=== PATIENT | male | born 1960 | race Hispanic/Latino ===

== ENCOUNTER 2023-09-25 12:08 | Inpatient (IN) | payer OTHER ==
[2023-09-25] MEDS ORDERED: ONDANSETRON 4 MG/2 ML VIAL ONE (12:39)
[2023-09-25] MEDS ORDERED: NA CHLORIDE 0.9% 1,000 ML ONE (12:39)
[2023-09-25] MEDS ORDERED: MORPHINE 4 MG/ML SYR ONE (12:39)
[2023-09-25 12:43] LABS: Absolute Eosinophils 0.1 K/uL (0-0.5); Absolute Lymphocytes (CBC) 1.6 K/uL (0.7-4.9); Absolute Monocytes 0.6 K/uL (0.1-1.3); Absolute Neutrophil 7.9 K/uL (1.8-8.0); Basophils % 0.3 % (0-1.3); Eosinophils % 0.9 % (0-4.4); Hematocrit 50.6 % (39.6-49.0); Hemoglobin 17.4 g/dL (13.6-17.9); Lymphocytes % 15.6 % (15.3-44.8); MCH 30.3 pg (27.0-35.0); MCHC 34.4 g/dL (32.0-36.0); MCV 88.2 fL (80-100); MPV 9.7 fL (7.6-11.3); Monocytes % 5.8 % (3.3-12.3); Neutrophils % 77.4 % (41.7-73.7); Platelets 184 thou/uL (152-406); RBC Red Blood Cell Count 5.74 M/uL (4.33-5.43); Red Cell Distribution Width 13.3 % (12.1-15.2)
[2023-09-25 13:09] LABS: Albumin 3.9 g/dL (3.4-5.0); Albumin/Globulin Ratio 1.1 (1.1-1.8); Anion Gap 7.2 mEq/L (5.0-15.0); Bilirubin Total 0.6 mg/dL (0.2-1.0); Globulin 3.7 g/dL (2.3-3.5); Protein, Total 7.6 g/dL (6.4-8.2); Troponin High Sensitivity 3.3 pg/mL (<58.9)
[2023-09-25 13:11] LABS: Potassium 4.2 mEq/L (3.5-5.1)
--- NOTE | 2023-09-25 14:05 | RAD REPORT ---
EXAM DESCRIPTION: CTAbdomen Pelvis W Contrast - 09/25/2023 1:42 pm CLINICAL HISTORY: ABD PAIN COMPARISON: No comparisons TECHNIQUE: CT of the abdomen and pelvis was performed. All CT scans are performed using dose optimization technique as appropriate and may include automated exposure control or mA/KV adjustment according to patient size. FINDINGS: Lower chest: No acute abnormality. Liver: Hepatic steatosis. No focal masses. Biliary: No biliary ductal dilatation. Stomach: No significant focal abnormality. Duodenum: No significant focal abnormality. Pancreas: No significant abnormality. Spleen: No significant abnormality. Adrenal: No suspicious lesions. Kidney/ureter: No hydronephrosis. No renal calculi. Retroperitoneum: No retroperitoneal adenopathy. Vascular: No aneurysm. Mild atherosclerosis. Bowel: Normal appendix.. The proximal small bowel is mildly dilated measuring up to 3.1 cm. The trans ition to nondilated small bowel is long and smooth. Peritoneum: No ascites or free air. Bladder: Grossly unremarkable. Reproductive: No adnexal masses. Bones: No acute fracture. Other: n/a IMPRESSION: Mildly dilated proximal small bowel centrally could reflect an ileus. The transition to nondilated distal small bowel is long and smooth without convincing evidence of a mechanical small romy wel obstruction at this time. No other acute findings identified. Specifically, no CT evidence of acu te pancreatitis. The appendix is normal.
--- NOTE | 2023-09-25 15:37 | ER ---
Nurse's Notes [facility] Name: Jean Carlos Vences Age: 63 yrs Sex: Male : 1960 Arrival Date: 09/25/2023 Time: 12:08 Bed 20 Private MD: Diagnosis: Ileus, unspecified Presentation: 09/24 12:19 Chief complaint: Patient states: Lower CP that radiates into back started this AM. ll1 Coronavirus screen: Client denies travel out of the [place] in the last 14 days. At this time, the client does not indicate any symptoms associated with coronavirus-19. Ebola Screen: Patient denies travel to an Ebola-affected area in the 21 days before illness onset. Initial Sepsis Screen: Does the patient meet any 2 criteria? No. Patient's initial sepsis screen is negative. Does the patient have a suspected source of infection? No. Patient's initial sepsis screen is negative. Risk Assessment: Do you want to hurt yourself or someone else? Patient reports no desire to harm self or others. Onset of symptoms was September 25, 2023. 12:19 Method Of Arrival: Ambulatory ll1 12:19 Acuity: BAY 3 ll1 Triage Assessment: 12:20 General: Appears uncomfortable, Behavior is calm, cooperative, appropriate for age. ll1 Pain: Complains of pain in upper abdomen Pain radiates to back. Neuro: No deficits noted. GI: Reports upper abdominal pain. Musculoskeletal: Reports pain in back. Historical: - Allergies: 12:13 Metformin HCl; hb - PMHx: 12:13 Diabetes - NIDDM; High Cholesterol; Hypertension; hb - Immunization history:: Adult Immunizations up to date. - Infectious Disease History:: Denies. - Social history:: Smoking status: Patient denies any tobacco usage or history of. - Family history:: not pertinent. Screenin:27 [facility] ED Fall Risk Assessment (Adult) History of falling in the last 3 months, mb9 including since admission No falls in past 3 months (0 pts) Confusion or Disorientation No (0 pts) Intoxicated or Sedated No (0 pts) Impaired Gait No (0 pts) Mobility Assist Device Used No (0 pt) Altered Elimination No (0 pt) Score/Fall Risk Level 0 - 2 = Low Risk Oriented to surroundings, Maintained a safe environment, Educated pt \T\ family on fall prevention, incl call for assistance when getting out of bed. Abuse screen: Denies threats or abuse. Nutritional screening: No deficits noted. Tuberculosis screening: No symptoms or risk factors identified. Assessment: 12:26 General: Appears uncomfortable, Behavior is cooperative. Pain: Complains of pain in mb9 abdomen Pain radiates to RUQ/LUQ Pain currently is 10 out of 10 on a pain scale. Quality of pain is described as throbbing, Pain began suddenly. Neuro: Caal Agitation-Sedation Scale (RASS): 0 - Alert and Calm Level of Consciousness is awake, alert, obeys commands, Oriented to person, place, time, situation, Appropriate for age. Cardiovascular: Heart tones S1 S2 present Patient's skin is warm and dry. Respiratory: Airway is patent Respiratory effort is even, unlabored, Respiratory pattern is regular, symmetrical. GI: Abdomen is round non-distended, Bowel sounds present X 4 quads. Abd is soft Abdomen is tender to palpation in right upper quadrant and left upper quadrant Reports diarrhea. : No signs and/or symptoms were reported regarding the genitourinary system. EENT: No signs and/or symptoms were reported regarding the EENT system. Derm: Skin is pink, warm \T\ dry. Musculoskeletal: Range of motion: intact in all extremities. 13:38 Reassessment: No changes from previously documented assessment. Patient and/or family mb9 updated on plan of care and expected duration. Pain level reassessed. Patient is alert, oriented x 3, equal unlabored respirations, skin warm/dry/pink. 15:32 Reassessment: No changes from previously documented assessment. Patient and/or family mb9 updated on plan of care and expected duration. Pain level reassessed. Patient is alert, oriented x 3, equal unlabored respirations, skin warm/dry/pink. Vital Signs: 12:19 Pulse 88; Resp 17; Temp 97.7; Pulse Ox 96% on R/A; Weight 97.52 kg; Height 5 ft. 10 in. ll1 ; Pain 10/10; 12:28 BP 160 / 90; mb9 12:19 Body Mass Index 30.85 (97.52 kg, 177.8 cm) ll1 12:19 Pain Scale: Adult ll1 ED Course: 12:12 Patient arrived in ED. mg5 12:12 Jesse Beyer MD is Attending Physician. rt 12:13 Arm band placed on Patient placed in an exam room, on a stretcher. hb 12:20 Triage completed. ll1 12:25 Micaela Aceves, SANTI is Primary Nurse. mb9 12:25 EKG done, by ED staff, reviewed by Jesse Beyer MD. Inserted saline lock: 20 gauge mb9 in left antecubital area, using aseptic technique. Blood collected. 12:27 Placed in gown. Bed in low position. Call light in reach. Side rails up X 1. Provided mb9 Education on: press call light if needing anything. Client placed on continuous cardiac and pulse oximetry monitoring. NIBP monitoring applied. pvc monitor on. 13:44 CT Abd/Pelvis - IV Contrast Only In Process Unspecified. EDMS 15:36 Dre Norton MD is Hospitalizing Provider. rt 15:47 US Abdomen Limited In Process Unspecified. EDMS 16:27 No provider procedures requiring assistance completed. Patient admitted, IV remains in mb9 place. Administered Medications: 12:40 Drug: Ondansetron IVP 4 mg IVP once; over 2 minutes Route: IVP; Site: left antecubital; mb9 14:33 Follow up: Response: No adverse reaction mb9 12:43 Drug: NS 0.9% IV 1000 ml IV at 1 bolus Per protocol; 1000 mL bolus Route: IV; Rate: 1 mb9 bolus; Site: left antecubital; 14:33 Follow up: Response: No adverse reaction; IV Status: Completed infusion mb9 12:43 Drug: morphine IVP or IV 4 mg IVP once over 4 mins Route: IVP; Infused Over: 4 mins; mb9 Site: left antecubital; 14:33 Follow up: Response: No adverse reaction mb9 Medication: 12:27 VIS not applicable for this client. mb9 Outcome: 15:36 Decision to Hospitalize by Provider. rt 16:27 Admitted to Tele accompanied by tech, via wheelchair, mb9 16:27 Condition: stable 16:27 Instructed on the need for admit, 16:27 Patient left the ED. mb9 Signatures: Dispatcher [employer] EDMS Di Pedersen RN RN Mike Puri RN RN 1 Micaela Aceves RN RN mb9 Jesse Beyer MD MD rt Mary Kay Tamayo mg5
--- NOTE | 2023-09-25 15:37 | EDPHYS ---
Physician Documentation [facility] Name: Jean Carlos Vences Age: 63 yrs Sex: Male : 1960 Arrival Date: 09/25/2023 Time: 12:08 Bed 20 Private MD: ED Physician Jesse Beyer HPI: 09/24 12:42 This 63 yrs old Male presents to ER via Ambulatory with complaints of Chest rt Pain, Back Pain. 12:42 Patient presents to the ED with abdominal pain radiating to the back, epigastric, rt starting this morning after eating irizarry and eggs. Reports more of an upper abdominal as compared to the chest pain to me. Reports nausea, vomiting. States the symptoms are similar to when he had pancreatitis about 18 years previously. Denies other acute complaints, symptoms are moderate in severity, no other aggravating or alleviating factors.. Historical: - Allergies: 12:13 Metformin HCl; hb - PMHx: 12:13 Diabetes - NIDDM; High Cholesterol; Hypertension; hb - Immunization history:: Adult Immunizations up to date. - Infectious Disease History:: Denies. - Social history:: Smoking status: Patient denies any tobacco usage or history of. - Family history:: not pertinent. ROS: 12:42 Constitutional: Negative for fever, chills, and weight loss, Cardiovascular: Negative rt for chest pain, palpitations, and edema, Respiratory: Negative for shortness of breath, cough, wheezing, and pleuritic chest pain, MS/Extremity: Negative for injury and deformity, Skin: Negative for injury, rash, and discoloration, Neuro: Negative for headache, weakness, numbness, tingling, and seizure, 12:42 Abdomen/GI: Positive for abdominal pain, nausea and vomiting, Exam: 12:42 Constitutional: This is a well developed, well nourished patient who is awake, alert, rt and in no acute distress. Head/Face: Normocephalic, atraumatic. Chest/axilla: Normal chest wall appearance and motion. Nontender with no deformity. No lesions are appreciated. Cardiovascular: Regular rate and rhythm with a normal S1 and S2. No gallops, murmurs, or rubs. Normal PMI, no JVD. No pulse deficits. Respiratory: Lungs have equal breath sounds bilaterally, clear to auscultation and percussion. No rales, rhonchi or wheezes noted. No increased work of breathing, no retractions or nasal flaring. MS/ Extremity: Pulses equal, no cyanosis. Neurovascular intact. Full, normal range of motion. Neuro: Awake and alert, GCS 15, oriented to person, place, time, and situation. Cranial nerves II-XII grossly intact. Motor strength 5/5 in all extremities. Sensory grossly intact. Cerebellar exam normal. Normal gait. 12:42 ECG was reviewed by the Attending Physician. 12:42 Abdomen/GI: Tenderness to epigastrium, left upper, right upper quadrants with mild guarding, no rebound, distention, Vital Signs: 12:19 Pulse 88; Resp 17; Temp 97.7; Pulse Ox 96% on R/A; Weight 97.52 kg; Height 5 ft. 10 in. ll1 ; Pain 10/10; 12:28 BP 160 / 90; mb9 12:19 Body Mass Index 30.85 (97.52 kg, 177.8 cm) ll1 12:19 Pain Scale: Adult ll1 MDM: 12:28 Patient medically screened. rt 19:32 Differential diagnosis: Pancreatitis, ileus, bowel obstruction. Data reviewed: vital rt signs, nurses notes, lab test result(s), EKG, radiologic studies. Consideration of Admission/Observation Patient was admitted/placed on observation. Management of patient was discussed with the following: Primary Care Provider: Agrees to admit. I considered the following discharge prescriptions or medication management in the emergency department Medications were administered in the Emergency Department. See MAR. Independent interpretation of the following test(s) in the Emergency Department CT Scan: My interpretation is No bowel obstruction seen on interpretation of CT scan images. Care significantly affected by the following chronic conditions: Hypertension. Counseling: I had a detailed discussion with the patient and/or guardian regarding the historical points, exam findings, and any diagnostic results supporting the discharge/admit diagnosis, lab results, radiology results, the need for further work-up and treatment in the hospital. Response to treatment: the patient's symptoms have markedly improved after treatment. 09/24 12:35 Order name: CBC with Diff; Complete Time: 13:12 rt 09/24 12:35 Order name: CMP; Complete Time: 13:12 rt 09/24 12:35 Order name: Lipase; Complete Time: 13:12 rt 09/24 12:35 Order name: Troponin High Sensitivity; Complete Time: 13:12 rt 09/24 12:35 Order name: CT Abd/Pelvis - IV Contrast Only; Complete Time: 14:08 rt 09/24 15:26 Order name: US Abdomen Limited; Complete Time: 16:01 rt 09/24 12:35 Order name: IV Saline Lock; Complete Time: 12:35 rt 09/24 12:35 Order name: Labs collected and sent; Complete Time: 12:35 rt EC:42 Rate is 87 beats/min. Rhythm is regular, Normal Sinus Rhythm with No ectopy. QRS Roxie rt is Normal. UT interval is normal. QRS interval is normal. QT interval is normal. No ST changes noted. Interpreted by me. Administered Medications: 12:40 Drug: Ondansetron IVP 4 mg IVP once; over 2 minutes Route: IVP; Site: left antecubital; mb9 14:33 Follow up: Response: No adverse reaction mb9 12:43 Drug: NS 0.9% IV 1000 ml IV at 1 bolus Per protocol; 1000 mL bolus Route: IV; Rate: 1 mb9 bolus; Site: left antecubital; 14:33 Follow up: Response: No adverse reaction; IV Status: Completed infusion mb9 12:43 Drug: morphine IVP or IV 4 mg IVP once over 4 mins Route: IVP; Infused Over: 4 mins; mb9 Site: left antecubital; 14:33 Follow up: Response: No adverse reaction mb9 Disposition Summary: 09/25/23 15:36 Hospitalization Ordered Notes: Hospitalization Status: Observation rt Provider: Dre Norton rt Location: Telemetry/[facility] (observation) rt Condition: Stable rt Problem: new rt Symptoms: have improved rt Bed/Room Type: Standard rt Room Assignment: 431(09/25/23 15:47) hb Diagnosis - Ileus, unspecified rt Forms: - Medication Reconciliation Form rt - SBAR form rt - Leadership Thank You Letter rt Signatures: Dispatcher [employer] Di Ceron RN RN hb Mike Puri RN RN ll1 Micaela Aceves RN RN mb9 Jesse Beyer MD MD rt Corrections: (The following items were deleted from the chart) 15:47 15:36 rt hb
--- NOTE | 2023-09-25 15:56 | RAD REPORT ---
EXAM DESCRIPTION: US - Abdomen Exam Limited - 09/25/2023 3:45 pm CLINICAL HISTORY: ruq COMPARISON: Abdomen Pelvis W Contrast dated 09/25/2023 FINDINGS: The gallbladder demonstrates no gallstones. No pericholecystic fluid or gallbladder wall t hickening. The common bile duct is normal measuring 3 mm. The liver demonstrates no findings of intrahepatic biliary dilatation. IMPRESSION: Unremarkable examination.
[2023-09-25] MEDS ORDERED: ONDANSETRON 4 MG/2 ML VIAL IV PRN (17:22)
[2023-09-25] MEDS ORDERED: SODIUM CHLORIDE 0.9% 10ML INJ IV PRN (17:23)
--- NOTE | 2023-09-25 17:27 | P.HP ---
Certification for Inpatient Patient admitted to: Inpatient With expected LOS: >2 Midnights Practitioner: I am a practitioner with admitting privileges, knowledge of patient current condition, hospital course, and medical plan of care. Services: Services provided to patient in accordance with Admission requirements found in Title 42 Section 412.3 of the Code of Federal Regulations Patient History Date of Service: 09/25/23 Reason for admission: nausea, vomiting, diarrhea. History of Present Illness: Jean Carlos woke up with nausea and vomiting. Had one episode of diarrhea also. He has epig pain. CT shows ileus and sonogram is negative. Allergies Met Allergy (Uncoded 12/14/16 16:09) Unknown Home medications list reviewed: Yes Home Medications: Codeine/APAP [Tylenol #3*] PO 09/25/23 Ezetimibe PO DAILY AFTER SUPPER 09/25/23 Fenofibrate PO DAILY WITH BREAKFAST 09/25/23 Metformin ER [Glucophage ER*] PO DAILY AT SUPPER 09/25/23 - Past Medical/Surgical History Has patient received pneumonia vaccine in the past: Yes Review of Systems 10-point ROS is otherwise unremarkable Physical Examination - Physical Exam General: Oriented x3, Moderate distress, Obese HEENT: Atraumatic, PERRLA, Mucous membr. moist/pink, EOMI, Sclerae nonicteric Neck: Supple, 2+ carotid pulse no bruit, No LAD, Without JVD or thyroid abnormality Respiratory: Clear to auscultation bilaterally, Normal air movement Cardiovascular: Regular rate/rhythm, Normal S1 S2 Gastrointestinal: No rebound, No guarding, Tenderness Musculoskeletal: No tenderness Integumentary: No rashes Neurological: Normal gait, Normal speech, Normal strength at 5/5 x4 extr, Normal tone, Normal affect Lymphatics: No axilla or inguinal lymphadenopathy - Studies Laboratory Data (last 24 hrs) 09/25/23 09/25/23 12:38 12:38 WBC 10.10 Hgb 17.4 Hct 50.6 H Plt Count 184 Sodium 134 L Potassium 4.2 BUN 16 Creatinine 1.49 H Glucose 248 H Total Bilirubin 0.6 AST 37 ALT 55 Alkaline Phosphatase 66 Lipase 56 Assessment and Plan - Problems (Diagnosis) (1) Viral gastroenteritis Current Visit: Yes Status: Acute Plan: HE HAS HAD VOMITING AND DIARRHEA BOTH. ILEUS IS LESS LIKELY WITH THESE SS. I WILL CONT IV ZOFRAN AND PROTONIX IV. WILL AVOID NG UNLESS X RAY GETS WORSE. (2) Diabetes Current Visit: Yes Status: Chronic Plan: HE IS NOT ON [employer] INSURANCE NEVER PAID FOR IT CHECK A1C LIPASE IN AM. - Advance Directives Does patient have a Living Will: No Does patient have a Durable POA for Healthcare: No
[2023-09-25] MEDS: NA CHLORIDE 0.9% 1,000 ML IV SCH (17:29)
[2023-09-25] MEDS: MORPHINE 2 MG/ML SYR IV PRN (17:43)
[2023-09-25] MEDS: NACHLORIDE 0.45% 1,000 ML IV SCH (17:46)
[2023-09-25] MEDS: PANTOPRAZOLE 40 MG INJ IVP SCH (20:20)
[2023-09-25] MEDS: ONDANSETRON 4 MG/2 ML VIAL IV PRN (21:32)
[2023-09-26] MEDS: INSULIN REGULAR (HUMAN) 100 UNIT/ML SQ SCH
[2023-09-26 07:02] LABS: Absolute Lymphocytes (CBC) 1.5 K/uL (0.7-4.9); Absolute Monocytes 0.4 K/uL (0.1-1.3); Basophils % 0.2 % (0-1.3); Eosinophils % 0.4 % (0-4.4); Hematocrit 43.6 % (39.6-49.0); Hemoglobin 14.7 g/dL (13.6-17.9); Lymphocytes % 24.8 % (15.3-44.8); MCHC 33.8 g/dL (32.0-36.0); MCV 88.9 fL (80-100); MPV 9.6 fL (7.6-11.3); Monocytes % 6.2 % (3.3-12.3); Neutrophils % 68.4 % (41.7-73.7); Platelets 148 thou/uL (152-406); RBC Red Blood Cell Count 4.91 M/uL (4.33-5.43); Red Cell Distribution Width 13.2 % (12.1-15.2)
[2023-09-26 07:13] LABS: Anion Gap 8.1 mEq/L (5.0-15.0); Potassium 4.1 mEq/L (3.5-5.1)
[2023-09-26 09:54] LABS: Specific Gravity 1.007 (1.005-1.030); Urine Bilirubin NEGATIVE (Negative); Urine Blood Negative (Negative); Urine Clarity Clear (Clear); Urine Color Colorless (Yellow); Urine Glucose NEGATIVE (Negative); Urine Ketones NEGATIVE (Negative); Urine Microscopic Reflex YN NO UMIC; Urine Nitrite NEGATIVE (Negative); Urine Protein NEGATIVE (Negative); Urine Urobilinogen Normal (Normal)
[2023-09-26 10:31] VITALS: O2SAT 94
[2023-09-26] MEDS: PNEUMOCOCCAL VACCINE 0.5 ML IMVAC ONE (12:00)
[2023-09-26] MEDS: MORPHINE 4 MG/ML SYR IV PRN (12:36)
--- NOTE | 2023-09-26 12:51 | RAD REPORT ---
EXAM DESCRIPTION: RAD - Abdomen 1 View (KUB) - 09/26/2023 10:04 am CLINICAL HISTORY: Placement of NGT/OGT. Post Insertion. COMPARISON: Abdomen Pelvis W Contrast dated 09/25/2023 TECHNIQUE: Single AP view of the abdomen. FINDINGS: Enteric tube projects at the level of the body of the stomach. Nonobstructive bowel gas pattern. No air-fluid levels, free air, or pneumatosis. No suspicious calcif ications. No significant bony abnormality. IMPRESSION: Enteric tube tip projects at the level of the body of the stomach.
--- NOTE | 2023-09-26 13:02 | EKG ---
Test Date: 2023-09-26 Test Time: 08:29:32 Community Living Coach: KIM MEASUREMENT RESULTS: Intervals: Rate: 68 NH: 196 QRSD: 102 QT: 366 QTc: 389 [place]: P: 18 NH: 196 QRS: -8 T: 18 INTERPRETIVE STATEMENTS: Normal sinus rhythm Normal ECG Compared to ECG 09/25/2023 12:22:38 Myocardial infarct finding no longer present Electronically Signed On 09-26-23 13:01:28 CDT by Tahir Caraballo
--- NOTE | 2023-09-26 13:06 | EKG ---
Test Date: 2023-09-25 Test Time: 12:22:38 Operations Forester: MARY MEASUREMENT RESULTS: Intervals: Rate: 87 PA: 164 QRSD: 98 QT: 336 QTc: 404 [place]: P: 19 PA: 164 QRS: -19 T: 38 INTERPRETIVE STATEMENTS: Normal sinus rhythm Cannot rule out Anterior infarct, age undetermined Abnormal ECG Compared to ECG 12/14/2016 13:57:33 Myocardial infarct finding now present Left ventricular hypertrophy no longer present Electronically Signed On 09-26-23 13:03:11 CDT by Tahir Caraballo
[2023-09-26] MEDS: EZETIMIBE 10 MG TAB PO SCH (17:27)
--- NOTE | 2023-09-26 18:08 | P.PN ---
Subjective Date of Service: 09/26/23 Chief Complaint: nausea, vomiting, diarrhea. Subjective: Improving HE STILL HAS LOT OF EPIG PAIN. NO VOMITING. I TALKED TO DR. MCGINNIS AND HE CONFIRMED MODERATE DISTENSION OF STOMACH. I CALLED IN DR JADE AND HAD PUT IN NG WITH LIS. Review of Systems 10-point ROS is otherwise unremarkable General: Weakness Physical Examination - Vital Signs Temperature: 97.2 F Blood Pressure: 140/81 Pulse: 66 Respirations: 18 Pulse Ox (%): 97 - Physical Exam General: Oriented x3, Moderate distress, Obese HEENT: Atraumatic, PERRLA, EOMI Neck: Supple, JVD not distended Respiratory: Clear to auscultation bilaterally, Normal air movement Cardiovascular: Regular rate/rhythm, Normal S1 S2 Gastrointestinal: Normal bowel sounds, No tenderness Musculoskeletal: No tenderness Integumentary: No rashes Neurological: Normal speech, Normal tone, Normal affect Lymphatics: No axilla or inguinal lymphadenopathy - Studies Medications List Reviewed: Yes Assessment And Plan - Current Problems (Diagnosis) (1) Viral gastroenteritis Current Visit: Yes Status: Acute Plan: HE HAS HAD VOMITING AND DIARRHEA BOTH. ILEUS IS LESS LIKELY WITH THESE SS. I WILL CONT IV ZOFRAN AND PROTONIX IV. WILL AVOID NG UNLESS X RAY GETS WORSE. (2) Diabetes Current Visit: Yes Status: Chronic Plan: HE IS NOT ON [employer] INSURANCE NEVER PAID FOR IT CHECK A1C LIPASE IN AM. (3) Gastroparesis Current Visit: Yes Status: Acute Plan: HE IS NOT ON ANY [employer]P [employer]ISTS DM CAN LEAD TO THIS SOME TIMES. NGT WITH LIS (4) Paralytic ileus Current Visit: Yes Status: Acute Plan: UNCLEAR HE HAD BM YEST.
[2023-09-26 18:55] VITALS: BMI 30.8
[2023-09-27] MEDS: HOME MED 1 EA UNK (Fenofibrate [Fenofibrate] 50 MG Capsule) PO SCH (08:00)
--- NOTE | 2023-09-27 13:57 | RAD REPORT ---
EXAM DESCRIPTION: RAD - Abdomen 1 View (KUB) - 09/27/2023 12:11 pm CLINICAL HISTORY: sbo COMPARISON: Abdomen 1 View (KUB) dated 09/26/2023 TECHNIQUE: Single AP view of the abdomen. FINDINGS: Nonobstructive bowel gas pattern. Relative paucity of bowel gas in the central abdomen, a nonspecific finding. Enteric tube unchanged in position. No air-fluid levels, free air, or pneumatosi s. No suspicious calcifications. No significant bony abnormality. IMPRESSION: Relative paucity of bowel gas in the central abdomen, a nonspecific finding. This could relate to fluid filling of bowel loops, versus resolution of bowel distention.
--- NOTE | 2023-09-27 21:45 | P.PN ---
Subjective Date of Service: 09/27/23 Chief Complaint: nausea, vomiting, diarrhea. Subjective: Improving HE STILL HAS LOT OF EPIG PAIN. NO VOMITING. I TALKED TO DR. MCGINNIS AND HE CONFIRMED MODERATE DISTENSION OF STOMACH. I CALLED IN DR JADE AND HAD PUT IN NG WITH LIS. HE HAS PASSED GAS NO BM YET I CALLED DR. JADE TO EVALUATE AND HE MAY REMOVE NGT IF HE IS ABLE TO TOLERATE FOOD. Physical Examination - Vital Signs Temperature: 98.9 F Blood Pressure: 139/80 Pulse: 79 Respirations: 20 Pulse Ox (%): 96 - Physical Exam General: Oriented x3, Mild distress, Obese HEENT: Atraumatic, PERRLA, EOMI Neck: Supple, JVD not distended Respiratory: Clear to auscultation bilaterally, Normal air movement Cardiovascular: Regular rate/rhythm, Normal S1 S2 Gastrointestinal: Normal bowel sounds, No tenderness Musculoskeletal: No tenderness Integumentary: No rashes Neurological: Normal speech, Normal tone, Normal affect Lymphatics: No axilla or inguinal lymphadenopathy - Studies Medications List Reviewed: Yes Assessment And Plan - Current Problems (Diagnosis) (1) Viral gastroenteritis Current Visit: Yes Status: Acute Plan: HE HAS HAD VOMITING AND DIARRHEA BOTH. ILEUS IS LESS LIKELY WITH THESE SS. I WILL CONT IV ZOFRAN AND PROTONIX IV. WILL AVOID NG UNLESS X RAY GETS WORSE. (2) Diabetes Current Visit: Yes Status: Chronic Plan: HE IS NOT ON [employer] INSURANCE NEVER PAID FOR IT CHECK A1C LIPASE IN AM. (3) Gastroparesis Current Visit: Yes Status: Acute Plan: HE IS NOT ON ANY [employer] DM CAN LEAD TO THIS SOME TIMES. NGT WITH LIS STABLE. MAY GO HOME IN AM. (4) Paralytic ileus Current Visit: Yes Status: Acute Plan: UNCLEAR HE HAD BM YEST.
[2023-09-28 08:36] VITALS: BP 130/79; TEMP 97
--- NOTE | 2023-09-28 13:01 | P.DS ---
Admission Date: 09/27/23 Discharge Date: 09/28/23 Disposition: ROUTINE DISCHARGE Discharge Condition: FAIR Reason for Admission: nausea, vomiting, diarrhea. - Problems (1) Viral gastroenteritis Current Visit: Yes Status: Acute (2) Diabetes Current Visit: Yes Status: Chronic (3) Gastroparesis Current Visit: Yes Status: Acute (4) Paralytic ileus Current Visit: Yes Status: Acute Brief History of Present Illness: Jean Carlos woke up with nausea and vomiting. Had one episode of diarrhea also. He has epig pain. CT shows ileus and sonogram is negative. Hospital Course: KITA CAME WITH VOMITNG , DIARRHEA AND ABDOMEN PAIN. HE HAS ILEUS AND POSSIBLE GASTROPARESIS. HE IMPROVED WITH NGT LIS AND HYDRATION. HE HAD BM TODAY. I ASKED FOR GASTRIC EMPTYING STUDY. REPORT IS PENDING. HE IS STABLE TO GO HOME. DR. Chakraborty CONSULTED ON HIM. Vital Signs/Physical Exam: Temp Pulse Resp BP Pulse Ox 97.0 F 74 18 130/79 97 09/28/23 08:00 09/28/23 08:00 09/28/23 08:00 09/28/23 08:00 09/28/23 08:00 Laboratory Data at Discharge: WBC 5.90 thou/uL (4.3-10.9) 09/26/23 06:27 Hgb 14.7 g/dL (13.6-17.9) D 09/26/23 06:27 Hct 43.6 % (39.6-49.0) 09/26/23 06:27 Plt Count 148 thou/uL (152-406) L 09/26/23 06:27 Sodium 134 mEq/L (136-145) L 09/26/23 06:27 Potassium 4.1 mEq/L (3.5-5.1) 09/26/23 06:27 BUN 17 mg/dL (7-18) 09/26/23 06:27 Creatinine 1.40 mg/dL (0.70-1.30) H 09/26/23 06:27 Glucose 189 mg/dL (74-106) H 09/26/23 06:27 Total Bilirubin 0.6 mg/dL (0.2-1.0) 09/25/23 12:38 AST 37 U/L (15-37) 09/25/23 12:38 ALT 55 U/L (16-61) 09/25/23 12:38 Alkaline Phosphatase 66 U/L (45-117) 09/25/23 12:38 Lipase Cancelled 09/25/23 17:30 Home Medications: Codeine/APAP [Tylenol #3*] 30 - 300 tab PO PRN PRN 09/25/23 Ezetimibe 10 tab PO DAILY AFTER SUPPER 09/25/23 Fenofibrate 200 cap PO DAILY WITH BREAKFAST 09/25/23 Metformin ER [Glucophage ER*] 500 tab PO DAILY AT SUPPER 09/25/23 Pantoprazole Sodium 40 mg PO DAILY #90 09/28/23 New Medications: Pantoprazole Sodium 40 mg PO DAILY #90 Followup: Dre Norton MD [Primary Care Provider] -
--- NOTE | 2023-09-28 20:18 | RAD REPORT ---
EXAM DESCRIPTION: NM - Gastric Emptying Study - 09/28/2023 12:33 pm CLINICAL HISTORY: post n/g /obs COMPARISON: Abdomen Exam Limited dated 09/25/2023 TECHNIQUE: The patient was administered approximately 1.1 mCi Tc 99m sulfur colloid in solid egg neal l. Imaging of the left upper quadrant was performed with time/activity curve generated. FINDINGS: Cine-loop images show normal progression of the radiopharmaceutical from the stomach into the small bowel. Time to one-half activity is 157 minutes, normal. Two hour retention is 58%. No othe r significant findings. IMPRESSION: Gastric emptying time is upper limits of normal.
== END 2023-09-28 15:12 | disposition home or self-care (01) | DRG 392 ==
LOC: ER 12:08 → 4TH 15:39 → OBSVTOIN 09-27 12:00
PROVIDERS: ADMIT Internal Medicine; ATTEND Internal Medicine
DX: K52.9 Noninfective gastroenteritis and colitis, unspecified (principal); K56.0 Paralytic ileus; E11.43 Type 2 diabetes mellitus with diabetic autonomic (poly)neuropathy; K31.84 Gastroparesis; Z79.4 Long term (current) use of insulin; I10 Essential (primary) hypertension
CPT/HCPCS: 36415; 74018; 74177; 76705; 78264; 80048; 80053; 81003; 82947; 83690; 84484; 85025; 93005; 96361; 96374; 96375; 99285; A9541; C9113; G0378; J2270; J2405; J7030; Q9967